=== PATIENT | female | born 1955 | race Caucasian/White ===

== ENCOUNTER 2024-10-03 00:53 | Emergency (ER) | payer MEDICARE, OTHER, SELFPAY ==
[2024-10-03] VITALS (13 sets, daily range): BP systolic 117–172; BP diastolic 63–130; BMI 26.4
--- NOTE | 2024-10-03 01:05 | ED.MUSCINJ ---
HPI-Injury
<ANTON Dsouza - Last Filed: 10/03/24 02:52>
General
Chief Complaint: Musculo-Skeletal Complaint
Source: patient
Exam Limitations: none
Time Seen by Provider: 10/03/24 00:58
History of Present Illness-Injury
Is this injury a work related problem?: No
Is pt an associate of [facility]?: No
Initial Injury comments:
This is a 69 year old female that comes in with c/o right shoulder pain. States that she tripped over the dog bed in the dark. States that she put her arm out as she did not want to hit her head. Denies any LOC or headache. States that she landed
on the right shoulder. States that she dislocated her shoulder 4 years ago. States that she has pain in the right shoulder. Denies any fever, chills, chest pain, SOB, nausea, vomiting, diarrhea.
Past History
<ANTON Dsouza - Last Filed: 10/03/24 02:52>
Past History
ED Past Medical History: NIDDM and Other (Right shoulder dislocation)
ED Past Surgical History: Orthopedic (Foot surgery)
Patient has exhibited threatening behavior?: No
Social History
Tobacco: Former smoker
Alcohol: Occasional
Personal: Single
Living: with family
Employment: Employed
Review of Systems
<ANTON Dsouza - Last Filed: 10/03/24 02:52>
Review of Systems
All Other Systems: ROS reviewed and negative except as documented in HPI and ROS
Constitutional: Reports no symptoms; Denies fever or chills
EENT: Reports no symptoms
Respiratory: Reports no symptoms; Denies cough or trouble breathing
Cardiac: Reports no symptoms; Denies chest pain
ABD/GI: Reports no symptoms; Denies abdominal pain, nausea, vomiting or diarrhea
: Reports no symptoms
Musculoskeletal: Reports joint pain (Right shoulder pain)
Skin: Reports no symptoms
Neurological: Reports no symptoms; Denies dizzy or headache
Psychiatric: Reports no symptoms
Musculoskeletal Injury Exam
<ANTON Dsouza - Last Filed: 10/03/24 02:52>
Musculoskeletal Injury Exam
Right Shoulder:
Pain with Movement?: Moderate
Tender to palpation?: Moderate
Soft tissue swelling?: Mild
External deformity and angulation?: Mild
Joint effusion?: None
Contusion?: None
Hematoma-local bleeding into tissue?: None
Strain- Sprain- Tear (Connective tissue injury)?: None
Crepitus with movement?: No
Joint instability?: Yes
Malalignment/deformity?: Yes
Range of motion: Limited (Due to pain)
Distal skin color and temperature: normal-warm & good color
Capillary Refill: normal
Normal distal neurovascular exam?: Yes
Phy Exam
<ANTON Dsouza - Last Filed: 10/03/24 02:52>
General Physical Exam
General Presentation: mild distress
General age: appears stated age
General Skin: warm and dry
General Habitus: normal
General Mental: alert
General Hydration: dry mucous membranes
ENT Exam
ENT Exam: TM's normal, pharynx normal and neck supple
Eye Exam
Eye Exam: EOMI
Cardiovascular Exam
Cardiovascular Exam: regular rate/rhythm, no edema and normal peripheral pulses
Musculoskeletal Exam
Musculoskeletal Exam: other (Right shoulder deformity with tenderness anterior and posterior shoulder. possible dislocation)
Skin Exam
Skin Exam: normal color, warm/dry, no rash and no petechia
Psychiatric Exam
Psychiatric Exam: normal mood/affect
Injury Course
<ANTON Dsouza - Last Filed: 10/03/24 02:52>
Orders/Labs/Results
Orders:
Orders
10/03/24 00:59
Shoulder, Right, Trauma [CR Shoulder, Trauma - Right] Urgent
Comment:
Reason For Exam: fall
10/03/24 01:08
Morphine Sulfate 2 mg IV NOW STA
Ondansetron Injectable [Zofran] 4 mg IV NOW STA
10/03/24 01:55
Propofol [Diprivan] 20 ml .ROUTE .STK-MED
10/03/24 02:09
Shoulder, Right 1 View [CR Shoulder - Right 1 View] Urgent
Comment:
Reason For Exam: post reduction
Comment: portable
<Arya Brito DO - Last Filed: 10/03/24 02:29>
Orders/Labs/Results
Orders:
Orders
10/03/24 00:59
Shoulder, Right, Trauma [CR Shoulder, Trauma - Right] Urgent
Comment:
Reason For Exam: fall
10/03/24 01:08
Morphine Sulfate 2 mg IV NOW STA
Ondansetron Injectable [Zofran] 4 mg IV NOW STA
10/03/24 01:55
Propofol [Diprivan] 20 ml .ROUTE .STK-MED
10/03/24 02:09
Shoulder, Right 1 View [CR Shoulder - Right 1 View] Urgent
Comment:
Reason For Exam: post reduction
Comment: portable
Procedures
<ANTON Dsouza - Last Filed: 10/03/24 02:52>
Moderate Sedation
ASA Risk Score: Class I
Chart and allergies reviewed: Yes
Consent for anesthesia obtained: Yes
Time out completed (validating right patient & procedure): Yes
Moderate Sedation Start Time(when first medication is given): 02:01
History of difficult intubation: No
Airway free of obstruction: Yes
Patient has a gag reflex: Yes
Patient is able to open mouth: Yes
Patient has no dentures: Yes
Patient has no loose teeth: Yes
Medication administered by Provider during Moderate Sedation: IV Propofol (mg)
Total dose administered: 125
Time drug administered: 02:01
Moderate Sedation Procedure End Time: 02:16
Comment: Patient was given 75mg to start, then 25 mg at 02:04 and 25mg at 02:05
<Arya Brito DO - Last Filed: 10/03/24 02:29>
Moderate Sedation
ASA Risk Score: Class I
Chart and allergies reviewed: Yes
Consent for anesthesia obtained: Yes
Time out completed (validating right patient & procedure): Yes
History of difficult intubation: No
Airway free of obstruction: Yes
Patient has a gag reflex: Yes
Patient is able to open mouth: Yes
Patient has no dentures: Yes
Patient has no loose teeth: Yes
Medication administered by Provider during Moderate Sedation: IV Propofol (mg)
Total dose administered: 125
Time drug administered: 02:01
Moderate Sedation Procedure End Time: 02:16
Joint/Fracture Reduction
Right Shoulder:
Indication for procedure:: Dislocation
Consent form signed: Yes
Joint reduced: with anesthesia sedation
Anesthesia/sedation: Moderate sedation
Injury was: closed
Further treatement: needs re-check only
Post reduction exam: stable
Capillary Refill: normal
Normal distal neurovascular exam?: Yes
<ANTON Dsouza - Last Filed: 10/03/24 02:52>
MDM/Problems Addressed
Differential Diagnosis Includes:
Shoulder dislocation. Shoulder facture.
MDM/Problems Addressed:
This is a 69 year old female that comes in with c/o right shoulder pain. States that she tripped over the dog bed and fell hitting her right shoulder.
Will get X-ray and if dislocated with do moderate sedation and reduce dislocation.
Patient had moderate sedation and the right shoulder was reduced by . Patient tolerate procedure well. Patient was place in a sling and will need to follow up with the inbound ingredient logistics specialist. Patient is not to lift her arm up above her
head, no alcohol or driving for the next 24 hours. Patient to return with any concerns .
Chronic conditions affecting care:
Prior Dislocation
Acute Exacerbation and/or Progression of Chronic Illness:
Prior right shoulder dislocation
<ANTON Dsouza - Last Filed: 10/03/24 02:52>
*Radiology
Radiology exam reviewed: preliminary read by ED provider (Shoulder- Right shoulder dislocation. Repeat Shoulder= Shoulder reduced and back into place)
*EKG
Interpreted by ED Provider?: NA
Rate: EKG- N/A
*Icer Hand Interpretation
Rate: Icer Hand- N/A
*Critical Care Note
Total Time (30-74mins, 75-104mins- exclusive of procedures): Not Applicable
ED Attending Note
<ANTON Dsouza - Last Filed: 10/03/24 02:52>
-
Portions of this chart may have been created with voice recognition software.� Occasional wrong word or��sound alike� substitutions may have occurred due to the inherent limitations of voice recognition software.
<Arya Brito DO - Last Filed: 10/03/24 02:29>
ED Attending Note
Patient seen and examined by attending physician: Yes
I performed the substantive portion of visit, reviewed & personally made and approve the management plan that is documented in note by myself or NATI.: Yes
ED Attending Note:
69-year-old female with right shoulder dislocation. She slipped and fell landing on her right shoulder. Denies head injury or loss of consciousness. Patient was seen in conjunction with the nurse practitioner. I reviewed the history and
treatment plan. In my independent physical exam patient is awake but in pain. Her right shoulder is AB ducted. After consent was signed, moderate sedation was administered and successful joint reduction was performed by myself. Patient tolerated
procedure well with no immediate adverse effects. Postreduction films showed successful reduction. Patient put into a sling immediately. Advised to wear the sling until Ortho follow-up.
Discharge Plan
Departure
Patient Disposition: Home (Routine Discharge)
Date of Disposition: 10/03/24
Time of Disposition:
Patient with high blood pressure during this ER visit?: No
Condition: Good
Covid-19: Not Applicable
Discharge Problem:
Dislocation of right shoulder joint
Instructions: Shoulder Dislocation (DC), How to Use a Shoulder Sling, Moderate Sedation in Adults (DC)
Referrals:
Rickey Bustillos MD [Active] - Follow up in 2-3 days
Adolfo Osorio MD [Family Provider] -
Berny Gandhi MD [Active] -
Stand Alone Forms: Return to Work
Activity Restrictions/Additional Instructions:
As discussed, you have dislocated your right shoulder. This has been reduced and put back into place. Please wear the sling when you are up moving around. DO NOT LIFT YOUR ARM ABOVE YOUR HEAD. You may remove the sling to sleep and rest on a pillow.
You may use Tylenol or Ibuprofen for any pain. Please no driving or alcohol for the next 24 hours. Follow up with the inbound ingredient logistics specialist in the next 2-3 days for further evaluaiton. IF YOU HAVE INCREASED OR CHANGING PAIN, OR YOU HAVE ANY OTHER
CONCERNS PLEASE RETURN TO THE EMERGENCY ROOM.
Interventions
Interventions:
*Risk Screen - Suicide Last Done: 10/03/24 00:54
*General Assessment Last Done: 10/03/24 01:07
*Neglect/Abuse Screening Last Done: 10/03/24 00:54
ED- Fall Risk Assessment Last Done: 10/03/24 01:07
*ED COVID-19 Vaccine History Last Done: 10/03/24 01:07
ED-Musculoskeletal Assessment Last Done: 10/03/24 01:07
Discharge Date and Time
Print Language: ETHIOPIAN
[2024-10-03] MEDS: ZOFRAN 4 MG IV (01:12)
[2024-10-03] MEDS: MORPHINE SULFATE 2 MG IV (01:12)
== END 2024-10-03 03:27 | disposition home or self-care (01) ==
LOC: EMR 00:53
PROVIDERS: EMERGENCY PHYSICIAN Student in an Organized Health Care Education/Training Program; FAMILY PHYSICIAN Internal Medicine
DX: S43.004A Unspecified dislocation of right shoulder joint, initial encounter (principal); W01.0XXA Fall on same level from slipping, tripping and stumbling without subsequent striking against object, initial encounter; E11.9 Type 2 diabetes mellitus without complications
CPT/HCPCS: 23650; 99152; 96374; 96375; 99285; 73020; 73030

== ENCOUNTER 2024-11-01 16:20 | Outpatient (RCR) | payer MEDICARE, OTHER, SELFPAY | END 2024-11-01 23:59 | disposition home or self-care (01) | LOC: RPT 16:20 | PROVIDERS: ATTENDING PHYSICIAN Physician Assistant Surgical; FAMILY PHYSICIAN Internal Medicine | DX: S43.004D Unspecified dislocation of right shoulder joint, subsequent encounter (principal); Z73.6 Limitation of activities due to disability; R20.0 Anesthesia of skin | CPT/HCPCS: 97010; 97110; 97162; 97535 ==

== ENCOUNTER 2024-12-02 09:03 | Outpatient (RCR) | payer MEDICARE, OTHER, SELFPAY | END 2024-12-02 23:59 | disposition home or self-care (01) | LOC: RPT 09:03 | PROVIDERS: ATTENDING PHYSICIAN Physician Assistant Surgical; FAMILY PHYSICIAN Internal Medicine | DX: S43.004D Unspecified dislocation of right shoulder joint, subsequent encounter (principal); Z73.6 Limitation of activities due to disability; R20.0 Anesthesia of skin | CPT/HCPCS: 97010; 97110 ==

== ENCOUNTER 2024-12-30 10:01 | Outpatient (RCR) | payer MEDICARE, OTHER, SELFPAY | END 2024-12-30 12:50 | disposition home or self-care (01) | LOC: RPT 10:01 | PROVIDERS: ATTENDING PHYSICIAN Physician Assistant Surgical; FAMILY PHYSICIAN Internal Medicine | DX: S43.004D Unspecified dislocation of right shoulder joint, subsequent encounter (principal); Z73.6 Limitation of activities due to disability; R20.0 Anesthesia of skin | CPT/HCPCS: 97110 ==